=== PATIENT | female | born 1950 | race Caucasian/White ===

== ENCOUNTER 2019-04-01 17:44 | Emergency (ER) | payer MEDICARE, OTHER ==
[2019-04-01 18:31] VITALS: BP 126/72
--- NOTE | 2019-04-01 19:02 | UC ---
Lower Extremity/Ankle HPI - HPI Summary HPI Summary: SLIPPED ON THE ROCKS WHEN COMING DOWN A TRAIL IN THE [facility] YESTERDAY. WAS ABLE TO WALK THE REST OF THE WAY DOWN BUT LATER IN THE EVENING HAD INCREASING DISCOMFORT WITH WEIGHTBEARING. TODAY IS BETTER AND IS ABLE TO WEIGHT -BEAR BUT STILL HAS SOME PAIN. NO SWELLING. HAS FULL RANGE OF MOTION. - History of Current Complaint Chief Complaint: UCLowerExtremity Stated Complaint: FOOT INJURY Time Seen by Provider: 04/01/19 18:27 Hx Obtained From: Patient Hx Last Menstrual Period: post Onset/Duration: Sudden Onset, Lasting Days - 1 DAY, Still Present Severity Initially: Moderate Severity Currently: Moderate Pain Intensity: 3 Pain Scale Used: 0-10 Numeric Aggravating Factor(s): Standing, Ambulation Alleviating Factor(s): Rest, Elevation Able to Bear Weight: Yes - Allergies/Home Medications Allergies/Adverse Reactions: Allergies Allergy/AdvReac Type Severity Reaction Status Date / Time acetic acid Allergy Severe abnaphylaxi Verified 04/01/19 18:36 [From [place] Vinegar and s Water] [place] And Derivatives Allergy Severe anaphylaxis Verified 04/01/19 18:36 Influenza Virus Vaccines Allergy Severe Edema Verified 04/01/19 18:36 iodine Allergy Severe anaphylaxis Verified 04/01/19 18:36 shellfish derived Allergy Severe anaphylaxis Verified 04/01/19 18:36 vinegar Allergy Severe Anaphylatic Uncoded 04/01/19 18:36 Shock Home Medications: Home Medications Ascorbic Acid TAB* [Vitamin C TAB*] 1 tab PO DAILY 04/01/19 [History Confirmed 04/01/19] PMH/Surg Hx/FS Hx/Imm Hx GI/ History: Gastroesophageal Reflux - Surgical History Surgical History: Yes Surgery Procedure, Year, and Place: Hysterectomy, Appendectomy, tonsilectomy - Family History Known Family History: Positive: Hypertension - father, Other - Mother - [place] - Social History Alcohol Use: None Substance Use Type: None Smoking Status (MU): Never Smoked Tobacco Review of Systems All Other Systems Reviewed And Are Negative: Yes Constitutional: Positive: Negative Skin: Positive: Negative Respiratory: Positive: Negative Cardiovascular: Positive: Negative Gastrointestinal: Positive: Negative Musculoskeletal: Positive: Arthralgia Physical Exam Triage Information Reviewed: Yes Appearance: Well-Appearing, No Pain Distress, Well-Nourished Vital Signs: Initial Vital Signs Temp 98 F 04/01/19 18:22 Pulse 71 04/01/19 18:22 Resp 17 04/01/19 18:22 BP 126/72 04/01/19 18:22 Pulse Ox 100 04/01/19 18:22 Vital Signs Reviewed: Yes Eyes: Positive: Conjunctiva Clear ENT: Positive: Hearing grossly normal Neck: Positive: Supple Respiratory: Positive: No respiratory distress, No accessory muscle use Cardiovascular: Positive: Pulses Normal Abdomen Description: Positive: Soft Musculoskeletal: Positive: ROM Intact, No Edema, Other: - TTP LEFT LATERAL MALLEOLUS Neurological: Positive: Alert Psychological: Positive: Age Appropriate Behavior Skin: Negative: Rashes Lower Extremity Course/Dx - Course Course Of Treatment: PHYSICAL EXAM CONSISTENT WITH AN ANKLE SPRAIN. DISCUSSED NO INDICATION FOR X- RAY TODAY. PATIENT AGREES THAT X-RAY IS UNNECESSARY TODAY. ENCOURAGED REST, ICE, COMPRESSION, ELEVATION. PLACED IN AMY WRAP AND GEL SPLINT BY RN. PATIENT WILL FOLLOW-UP WITH HER PCP OR ORTHOPEDICS IF HER SYMPTOMS DO NOT IMPROVE EXPECTED OVER THE NEXT FEW DAYS. - Differential Dx/Diagnosis Provider Diagnosis: Left ankle sprain Discharge - Sign-Out/Discharge Documenting (check all that apply): Patient Departure All imaging exams completed and their final reports reviewed: No Studies - Discharge Plan Condition: Stable Disposition: HOME Patient Education Materials: Ankle Sprain (ED) Referrals: Lia Alfonso MD [Primary Care Provider] - If Needed Yanely Tanner MD [Medical Doctor] - If Needed Additional Instructions: YOUR SYMPTOMS SHOULD IMPROVE SIGNIFICANTLY OVER THE NEXT 1-2 WEEKS. IF YOU DO NOT IMPROVE EXPECTED FOLLOW-UP WITH YOUR PCP OR ORTHO. YOU MAY BENEFIT FROM IMAGING AT THAT TIME. REST. OTC IBUPROFEN OR ALEVE NEEDED FOR DISCOMFORT. AMY WRAP AND GEL SPLINT FOR COMFORT. BE SURE TO GO THROUGH SLOW RANGE OF MOTION AND STRETCHING EXERCISES DAILY YOU ARE ABLE TO PREVENT STIFFENING UP AND MAKING THE DISCOMFORT WORSE. - Billing Disposition and Condition Condition: STABLE Disposition: Home
== END 2019-04-01 18:57 | disposition home or self-care (01) ==
LOC: UCEAST 17:44
DX: S93.402A Sprain of unspecified ligament of left ankle, initial encounter (principal); W01.0XXA Fall on same level from slipping, tripping and stumbling without subsequent striking against object, initial encounter; Y92.89 Other specified places as the place of occurrence of the external cause
CPT/HCPCS: 99213; G0463

== ENCOUNTER 2022-05-23 15:27 | Observation (INO) ==
[2022-05-23 15:44] LABS: ABS Basophils 0.1 10^3/ul (0-0.2); ABS Lymphocytes 1.4 10^3/ul (1.0-4.8); ABS Monocytes 0.4 10^3/ul (0-0.8); ABS Neutrophils 5.3 10^3/ul (1.5-7.7); Eosinophil % 0.4 %; Hematocrit 39 % (35-47); Hemoglobin 13.1 g/dL (12.0-16.0); Lymphocyte % 19.8 %; Mean Corpuscular HGB Conc 33 g/dL (31-36); Mean Corpuscular Hemoglobin 33 pg (27-31); Mean Corpuscular Volume 99 fL (80-97); Mean Platelet Volume 10.2 fL (7.4-10.4); Platelet Count 232 10^3/uL (150-450); Red Blood Count 3.96 10^6 /uL (3.70-4.87); Red Cell Distribution Width 13 % (10-15); White Blood Count 7.2 10^3/uL (3.5-10.8)
[2022-05-23 15:52] LABS: INR 0.92 (0.89-1.11)
[2022-05-23 16:32] LABS: Albumin 4.5 g/dL (3.2-5.2); Albumin/Globulin Ratio 1.8 (1-3); Calcium 9.2 mg/dL (8.6-10.3); Globulin 2.5 g/dL (2-4); Potassium 3.7 mmol/L (3.5-5.0); Total Bilirubin 0.7 mg/dL (0.2-1.0); eGFR CKD-EPI 71.3 (>60)
[2022-05-23] MEDS ORDERED: Ondansetron 4 mg VIAL 2 MG/ML 2 ml VIAL IV PRN (18:27)
[2022-05-23 18:35] LABS: High Sensitivity Troponin 1 Hr 5 pg/mL (<15)
[2022-05-23 19:00] LABS: HDL Cholesterol 64.6 mg/dL
[2022-05-23 19:15] LABS: TSH Ultra Thyroid Stim Horm 2.32 mcIU/mL (0.34-5.60)
[2022-05-23 19:26] LABS: Folate 8.54 ng/mL (5.90-24.80)
[2022-05-23 20:05] LABS: Urine Appearance Clear; Urine Bilirubin Negative (Negative); Urine Blood Negative (Negative); Urine Color Colorless; Urine Glucose Negative (Negative); Urine Ketones Negative (Negative); Urine Nitrite Negative (Negative); Urine Protein Negative (Negative); Urine Specific Gravity 1.002 (1.002-1.030); Urine Urobilinogen Negative (Negative)
[2022-05-23] MEDS: Enoxaparin 40 MG/0.4 ML SYR SUBCUT SCH (23:46)
[2022-05-24 06:40] LABS: ABS Basophils 0.1 10^3/ul (0-0.2); ABS Eosinophils 0.1 10^3/ul (0-0.6); ABS Lymphocytes 1.8 10^3/ul (1.0-4.8); ABS Monocytes 0.5 10^3/ul (0-0.8); ABS Neutrophils 2.9 10^3/ul (1.5-7.7); Eosinophil % 1.6 %; Hematocrit 38 % (35-47); Lymphocyte % 33.7 %; Mean Corpuscular HGB Conc 34 g/dL (31-36); Mean Corpuscular Hemoglobin 34 pg (27-31); Mean Corpuscular Volume 100 fL (80-97); Mean Platelet Volume 10.5 fL (7.4-10.4); Nucleated Red Blood Cells % 0.1; Platelet Count 191 10^3/uL (150-450); Red Blood Count 3.78 10^6 /uL (3.70-4.87); Red Cell Distribution Width 13 % (10-15); White Blood Count 5.4 10^3/uL (3.5-10.8)
[2022-05-24 07:10] LABS: Calcium 8.9 mg/dL (8.6-10.3); Potassium 3.6 mmol/L (3.5-5.0); eGFR CKD-EPI 77.8 (>60)
[2022-05-24] MEDS ORDERED: Regadenoson 0.4 MG/5 ML SYRINGE ONE (08:52)
[2022-05-24] MEDS ORDERED: Calcium Carb (TUMS) 500 mg CHEW TAB PO PRN (10:41)
[2022-05-24] MEDS: Pantoprazole VIAL 40 MG VIAL IV SCH (12:11)
[2022-05-24] MEDS: Enoxaparin 40 MG/0.4 ML SYR SUBCUT SCH (18:50)
[2022-05-25 05:59] LABS: ABS Basophils 0.1 10^3/ul (0-0.2); ABS Eosinophils 0.1 10^3/ul (0-0.6); ABS Monocytes 0.5 10^3/ul (0-0.8); ABS Neutrophils 2.4 10^3/ul (1.5-7.7); Eosinophil % 2.8 %; Hematocrit 38 % (35-47); Hemoglobin 12.4 g/dL (12.0-16.0); Lymphocyte % 39.3 %; Mean Corpuscular HGB Conc 33 g/dL (31-36); Mean Corpuscular Hemoglobin 33 pg (27-31); Mean Corpuscular Volume 99 fL (80-97); Mean Platelet Volume 10.1 fL (7.4-10.4); Platelet Count 200 10^3/uL (150-450); Red Blood Count 3.77 10^6 /uL (3.70-4.87); Red Cell Distribution Width 13 % (10-15)
[2022-05-25 06:31] LABS: Calcium 8.8 mg/dL (8.6-10.3); eGFR CKD-EPI 76.6 (>60)
[2022-05-25] MEDS: Pantoprazole VIAL 40 MG VIAL IV SCH (08:05)
[2022-05-25 09:03] LABS: HDL Cholesterol 64.5 mg/dL
[2022-05-25 11:45] VITALS: BP 123/76
[2022-05-26 18:38] LABS: Anaplasma phagocytophilum Negative (Negative); B. miyamotoi PCR, B Negative (Negative); Babesia divergens/MO-1 Negative (Negative); Babesia ducani Negative (Negative); Ehrlichia chaffeensis Negative (Negative); Ehrlichia ewingii/canis Negative (Negative); Ehrlichia muris eauclairensis Negative (Negative)
== END 2022-05-25 13:30 | disposition home or self-care (01) ==
LOC: ED 15:27 → EDHOLD 15:27 → MEDTELE 21:02
PROVIDERS: ADMIT Hospitalist; ATTEND Hospitalist